=== PATIENT | male | born 1940 | race Caucasian/White ===

== ENCOUNTER 2016-10-25 09:52 | Observation (INO) | payer OTHER ==
--- NOTE | 2016-10-25 10:09 | PDOC ---
History of Present Illness <Bulmaro Engle - Last Filed: 10/25/16 14:26> - General History Source: Patient, EMS Exam Limitations: Dementia - History of Present Illness Initial Comments: This is a 76 yo male with h/o Alzheimer's dementia, COPD (40 pack-year history but quit years ago, on 2 LPM O2 prn per his records), and hypothyroidism who presents BIBA from [facility] after an unwitnessed fall and right forehead laceration. EMS reports that he was found down on the floor next to a moderate about of blood this morning by care facility staff after an unwitnessed fall at an unknown time last night. Staff and the patient do not remember when he went to his bedroom for the night. The patient himself cannot recall any of the events of last night or this morning, and is thus unable to contribute to his recent medical history. Staff at the care facility did note to EMS that the patient has been having shortness of breath and productive cough for the past two weeks. He refused breathing treatments for EMS at the facility and en route to the ED. The patient currently denies chest pain, nausea , weakness, numbness, tingling, headache, vision changes, or any pain. He denies alcohol or drug use. <Obregon,Layla - Last Filed: 10/25/16 15:00> - General Stated Complaint: FALL Time Seen by Provider: 10/25/16 09:58 Past History <Bulmaro Engle - Last Filed: 10/25/16 14:26> - Past Medical History COPD: Yes Dementia: Yes Hypercholesterolemia: Yes Psychiatric Problems: Yes (depression) Thyroid Disease: Yes (hypothyroidism) Other medical history: BPH - Immunization History Immunization Up to Date: Yes - Psycho/Social/Smoking Cessation Hx Suicidal Ideation: No Smoking History: Unknown if ever smoked Substance Use Type: None <MindiLayla - Last Filed: 10/25/16 15:00> - Past Medical History Allergies/Adverse Reactions: Allergies Allergy/AdvReac Type Severity Reaction Status Date / Time No Known Allergies Allergy Verified 10/25/16 10:03 Review of Systems - Review of Systems Able to Perform ROS?: No (Alzheimer's dementia) Is the patient limited Maori proficient: No <Layla Obregon - Last Filed: 10/25/16 15:00> *Physical Exam - Vital Signs Last Vital Signs Temp Pulse Resp BP Pulse Ox 97.4 F L 65 20 135/83 92 L 10/25/16 10:01 10/25/16 10:01 10/25/16 10:01 10/25/16 10:01 10/25/16 10:01 <Bulmaro Engle - Last Filed: 10/25/16 14:26> - Vital Signs Last Vital Signs Temp Pulse Resp BP Pulse Ox 97.4 F L 65 20 135/83 92 L 10/25/16 10:01 10/25/16 10:01 10/25/16 10:01 10/25/16 10:01 10/25/16 10:01 - Physical Exam General Appearance: Yes: Nourished, Appropriately Dressed, Other (nontoxic and well-appearing visually, but obviously SOB with wheezing audible across the exam room and occasional productive cough). No: Apparent Distress HEENT: positive: EOMI, Normal Voice, Hearing Grossly Normal, Other (Right inferior frontal aspect with swelling and central 2.5 cm linear full-thickness laceration which is hemostatic). negative: Scleral Icterus (R), Scleral Icterus (L), Nasal Congestion Neck: positive: Trachea midline, Supple. negative: Tender, Rigid Respiratory/Chest: positive: Lungs Clear, Normal Breath Sounds. negative: Respiratory Distress, Crackles, Rhonchi, Stridor, Wheezing Cardiovascular: positive: Regular Rhythm, Regular Rate. negative: Murmur Gastrointestinal/Abdominal: positive: Normal Bowel Sounds, Soft. negative: Tender, Organomegaly, Pulsatile Mass, Guarding Musculoskeletal: positive: Normal Inspection, Other (1x1cm superficial skin tear to right anterior knee which is hemostatic). negative: Decreased Range of Motion, Vertebral Tenderness Extremity: positive: Normal Capillary Refill, Normal Inspection, Normal Range of Motion. negative: Tender, Cyanosis Integumentary: positive: Normal Color, Dry, Warm. negative: Erythema, Rash Neurologic: positive: Alert, Normal Mood/Affect, Motor Strength 5/5, Other. negative: Facial Droop <Layla Obregon - Last Filed: 10/25/16 15:00> Procedures - Laceration/Wound Repair Right Anterior Frontal Wound Length: to 2.5 cm Wound Explored: clean Wound's Depth, Shape: linear Irrigated w/ Saline: Yes Anesthesia: 2% Lidocaine w/ Epi Amount of Anesthetic (ccs): 5 Wound Repaired With: Sutures (#5) Suture Size/Type: 5:0, nylon <Layla Obregon - Last Filed: 10/25/16 15:00> ED Treatment Course - LABORATORY CBC & Chemistry Diagram: 10/25/16 10:45 10/25/16 10:45 - ADDITIONAL ORDERS Additional order review: Laboratory Results 10/25/16 10:45 Sodium 141 Potassium 4.6 Chloride 105 Carbon Dioxide 29 Anion Gap 7 L BUN 25 H Creatinine 0.8 Creat Clearance w eGFR > 60 Random Glucose 93 Calcium 9.2 Total Bilirubin 0.5 AST 47 H ALT 31 Alkaline Phosphatase 84 Total Protein 7.2 Albumin 3.3 L 10/25/16 10:45 RBC 5.03 MCV 88.2 MCHC 32.6 RDW 15.4 MPV 7.9 Neutrophils % 50.5 Lymphocytes % 39.9 Monocytes % 6.1 Eosinophils % 3.0 Basophils % 0.5 - RADIOLOGY Radiology Studies Ordered: Category Date Time Status SPINE-THORACIC [RAD] Stat Radiology 10/25/16 11:11 Ordered - Medications Given in the ED: ED Medications Discontinued Medications Generic Name Dose Route Start Last Admin Trade Name Freq PRN Reason Stop Dose Admin Acetaminophen 650 mg 10/25/16 11:14 10/25/16 12:23 Tylenol - PO 10/25/16 11:15 650 mg ONCE ONE Administration Diphtheria/Tetanus/Acell Pertussis 0.5 ml 10/25/16 10:37 10/25/16 10:44 Boostrix - IM 10/25/16 10:38 0.5 ml .ONCE ONE Administration Sodium Chloride 1,000 mls @ 1,000 mls/hr 10/25/16 10:32 10/25/16 10:41 Normal Saline - IV 10/25/16 11:31 1,000 mls/hr ASDIR STA Administration Lidocaine/Epinephrine 5 ml 10/25/16 12:07 10/25/16 12:23 Xylocaine 2%/Epi [id number] Pf INF 10/25/16 12:08 5 ml ONCE ONE Administration <Bulmaro Engle - Last Filed: 10/25/16 14:26> - LABORATORY CBC & Chemistry Diagram: 10/25/16 10:45 10/25/16 10:45 <Layla Obregon - Last Filed: 10/25/16 15:00> Medical Decision Making - Medical Decision Making 76 yo male with dementia and severe memory impairment who presents s/p unwitnessed fall with right forehead laceration. Patient without memory of event or ability to elaborate on his history. Per care facility records, he should be taking daily ASA but no other blood thinning agents. Per these records he also takes 28 mg/day memantine XR (can cause dizziness, sleepiness). Per EMS, it was reported that he is nonadherent to his medication regimen at the facility. The patient has suffered a fall which may be mechanical or may be secondary to syncope, lightheadedness, etc. Included on the ddx are PNA, UTI, ACS, arrhythmia, anemia, dehydration, electrolyte imbalance, etc. CXR, UA, CBC, CMP, EKG are ordered to evaluate for possible underlying cause of the fall. The patient's pupils are pinpoint, raising concern for pontine bleed, opioid use , cholinergic toxicity. Head and neck imaging are indicated according to Nexus II head and C-spine criteria. CT Head and C-spine without contrast are ordered to evaluate for skull fracture and/or ICH. CTs are not suggestive of acute intracranial or c-spine pathology. Right eyebrow laceration is cleaned and sutured. CXR suggests LLL pneumonia. Pt's PCP (Dr. Jaeger) agrees to admit the Pt for tx of HCAP with IV antibiotics. IV cefepime, vancomycin, and azithromycin are started and Pt is admitted. <Layla Obregon - Last Filed: 10/25/16 15:00> *DC/Admit/Observation/Transfer - Discharge Dispostion Admit: Yes <Bulmaro Engle - Last Filed: 10/25/16 14:26> - Discharge Dispostion Admit: Yes - Attestations Physician Attestion: 10/25/16 14:45 I, Dr. Layla Obregon, attest that this document has been prepared under my direction and personally reviewed by me in its entirety. I further attest, that it accurately reflects all work, treatment, procedures and medical decision -making performed by me. <Layla Obregon - Last Filed: 10/25/16 15:00> Diagnosis at time of Disposition: Pneumonia Qualifiers: Pneumonia type: due to unspecified organism Laterality: left Lung location: lower lobe of lung Qualified Code(s): J18.1 - Lobar pneumonia, unspecified organism Head injury Qualifiers: Encounter type: initial encounter Qualified Code(s): S09.90XA - Unspecified injury of head, initial encounter Laceration of head Qualifiers: Encounter type: initial encounter Location of open wound of head: scalp Foreign body presence: without foreign body Qualified Code(s): S01.01XA - Laceration without foreign body of scalp, initial encounter - Discharge Dispostion Condition at time of disposition: Guarded - Referrals Referrals: Therese Jaeger MD [Primary Care Provider] -
--- NOTE | 2016-10-25 10:10 | PDOC ---
Attending Attestation - Resident Resident Name: Layla Obregon - ED Attending Attestation I have performed the following: I have examined & evaluated the patient, The case was reviewed & discussed with the resident, I agree w/resident's findings & plan, Exceptions are as noted - HPI HPI: 10/25/16 11:12 76y M hx of alzheimers, copd (2L NC PRN), hypothyroidism, HL, presents for evaluation s/p fall, pt had an unwitnessed fall last night sometime, pt endorses mild headache, denies any vision changes, numbnes/tingling/weakness, cp , sob, palpitations, fever/schills. Pt does note that he has been having some mild posterior neck pain and upper back pain and has endorsed a nonproductive cough for several days. GENERAL: The patient is awake, alert, and fully oriented, Nontoxic - in no acute distress. HEAD: Normocephalic, laceation above R brow, no focal bony tenderness, EYES: extraocular movements intact, sclera anicteric, conjunctiva clear, Pupils 2mm ENT: Normal voice, Moist mucous membranes. NECK: Normal range of motion, supple, mild tendenress approx C6 LUNGS: rhonchorus breath sounds with imld diffuse wheezing HEART: Regular rate and rhythm, normal S1 and S2 without murmur, rub or gallop. ABDOMEN: Soft, nontender, normoactive bowel sounds. No guarding, no rebound. No CVA tenderness EXTREMITIES: Normal range of motion, no edema. No clubbing or cyanosis. No cords, erythema, or tenderness. NEUROLOGICAL: No facial assymetry, Normal speech, moving all 4 extermities spontaneously and symmetricallly PSYCH: Normal mood, normal affect. SKIN: Warm, Dry, normal turgor, A&P Untwitnessed fall repair laceration CT head to r/o ich, trauma labs to r/o anemia/metabolic dernagement UA and cxr to r/o occult inf duo nebs for wheezing/rales 10/25/16 14:25 cxr noted for pna case dw dr. abdalla agree with admission for futher mangaement due to underlying COPD for mangaement of his pna lac trepaired with 5 5.0 sutures. will need suture removal in 3-5 days Case discussed in detail with admitting physician including history, physical exam and ancillary studies. Admitting physician has assumed care for the patient, will follow all pending diagnostics and will complete the evaluation and treatment. - Physicial Exam PE: 10/26/16 17:14 see above - Medical Decision Making 10/26/16 17:14 see above Heart Score/ECG Review - ECG Impressions Comment:: 10/25/16 17:07 Twelve-lead EKG was performed and reviewed by me. There is normal sinus rhythm with a normal rate. Rate of 72 LBBB Procedures - Consent Consent obtained: Verbal - Laceration/Wound Repair Right Anterior Face Wound Length: 2.6 to 5.0 cm Wound Explored: clean Wound's Depth, Shape: superficial Irrigated w/ Saline: Yes Anesthesia: 2% Lidocaine Amount of Anesthetic (ccs): 5 Wound Debrided: moderate Wound Repaired With: Sutures Suture Size/Type: 5:0 Number of Sutures: 5 Layer Closure: No Sterile Dressing Applied: Yes
[2016-10-25] MEDS ORDERED: SODIUM CHLORIDE 1,000 ML IV STA (10:32)
[2016-10-25] MEDS ORDERED: DIPHTH,PERTUSS(ACELL),TET 0.5 ML DISP.SYRIN IM ONE (10:37)
[2016-10-25] MEDS ORDERED: ALBUTEROL SO4 2.5/IPRATROPIUM 0.5 INH SOL 3 ML VIAL.NEB. NEB ONE (10:38)
[2016-10-25 11:08] LABS: BASOPHIL 0.5 % (0-2.0); MCH 28.8 pg (25.7-33.7); MCHC 32.6 g/dl (32.0-35.9); MEAN CELL VOLUME 88.2 fl (80-96); MEAN PLT VOLUME 7.9 fl (7.5-11.1); NEUTROPHILS 50.5 % (42.8-82.8); PLATELET COUNT 185 K/MM3 (134-434); RDW 15.4 % (11.9-15.9); WHITE BLOOD COUNT 10.9 K/mm3 (4.0-10.0)
[2016-10-25] MEDS ORDERED: ACETAMINOPHEN 325 MG TABLET (FP) PO ONE (11:14)
[2016-10-25 11:17] LABS: ALK PHOS 84 U/L (45-117)
[2016-10-25 11:23] LABS: ALBUMIN 3.3 g/dl (3.4-5.0); ANION GAP 7 (8-16); BILIRUBIN,TOTAL 0.5 mg/dL (0.2-1.0); CALCIUM 9.2 mg/dL (8.5-10.1); CO2 29 mmol/L (21-32); CREATININE 0.8 mg/dL (0.7-1.3); GLUCOSE,RANDOM 93 mg/dL (74-106); SGOT/AST 47 U/L (15-37); SGPT/ALT 31 U/L (12-78); TOT PROT 7.2 g/dl (6.4-8.2)
[2016-10-25] MEDS ORDERED: LIDO 2%/EPI 1:200000 PRESRVFRE (20 ML SDVIAL) INF ONE (12:07)
[2016-10-25] MEDS ORDERED: LIDOCAINE 1%/EPI 1:100000 (50 ML MULTI DOSE VIAL) ONE (12:21)
[2016-10-25] MEDS ORDERED: ACETAMINOPHEN 325 MG TABLET (FP) ONE (12:21)
[2016-10-25] MEDS: ALBUTEROL SO4 2.5/IPRATROPIUM 0.5 INH SOL 3 ML VIAL.NEB. NEB SCH ×2 (12:47→23:34)
[2016-10-25] MEDS ORDERED: AZITHROMYCIN IVPB 500 MG in DEXTROSE 5%-WATER - 250 ML IVPB ONE (13:46)
[2016-10-25] MEDS ORDERED: CEFTRIAXONE 1 GM in DEXTROSE 5%-WATER - 50 ML IVPB ONE (13:46)
[2016-10-25] MEDS ORDERED: VANCOMYCIN 1,000 MG in DEXTROSE 5%-WATER - 250 ML IVPB ONE (13:49)
[2016-10-25] MEDS ORDERED: CEFEPIME HCL 2 GM VIAL (RESTRICTED TO ID) IVPB ONE (13:49)
[2016-10-25] MEDS ORDERED: CEFTRIAXONE 50 ML ONE (13:52)
[2016-10-25] MEDS ORDERED: AZITHROMYCIN IVPB 250 ML IVPB ONE (13:52)
[2016-10-25 14:05] LABS: URINE APPEARANCE CLEAR; URINE BILIRUBIN NEGATIVE (NEGATIVE); URINE BLOOD NEGATIVE (NEGATIVE); URINE COLOR STRAW; URINE GLUCOSE (UA) NEGATIVE (NEGATIVE); URINE KETONE NEGATIVE (NEGATIVE); URINE LEUK ESTERASE NEGATIVE (NEGATIVE); URINE NITRITE NEGATIVE (NEGATIVE); URINE PROTEIN NEGATIVE (NEGATIVE); URINE UROBILINOGEN NEGATIVE mg/dL (0.2-1.0)
[2016-10-25] MEDS ORDERED: CEFEPIME 100 ML IVPB ONE (15:10)
[2016-10-25] MEDS ORDERED: ALBUTEROL SO4 2.5/IPRATROPIUM 0.5 INH SOL 3 ML VIAL.NEB. NEB PRN (16:01)
[2016-10-25] MEDS ORDERED: VANCOMYCIN 1 GRAM (PRE-DOCKED) 250 ML IVPB ONE (16:09)
[2016-10-25 21:13] VITALS: BMI 21.7
[2016-10-25] MEDS: ACETAMINOPHEN 325 MG TABLET (FP) PO PRN (21:47)
[2016-10-26] MEDS: ALBUTEROL SO4 2.5/IPRATROPIUM 0.5 INH SOL 3 ML VIAL.NEB. NEB SCH ×3 (03:28→10:46)
[2016-10-26 08:31] LABS: MCH 29.5 pg (25.7-33.7); MCHC 33.7 g/dl (32.0-35.9); MEAN CELL VOLUME 87.6 fl (80-96); MEAN PLT VOLUME 7.5 fl (7.5-11.1); PLATELET COUNT 179 K/MM3 (134-434); RDW 15.3 % (11.9-15.9); WHITE BLOOD COUNT 8.1 K/mm3 (4.0-10.0)
[2016-10-26 08:59] LABS: ALBUMIN 3.1 g/dl (3.4-5.0); ANION GAP 6 (8-16); CALCIUM 8.6 mg/dL (8.5-10.1); CO2 30 mmol/L (21-32); GLUCOSE,RANDOM 78 mg/dL (74-106)
[2016-10-26 09:04] LABS: ALK PHOS 74 U/L (45-117); BILIRUBIN,TOTAL 0.7 mg/dL (0.2-1.0); CREATININE 0.7 mg/dL (0.7-1.3); SGOT/AST 27 U/L (15-37); SGPT/ALT 25 U/L (12-78); TOT PROT 6.4 g/dl (6.4-8.2)
[2016-10-26] MEDS ORDERED: LEVOFLOXACIN 500 MG IVPB 100 ML IVPB SCH (10:00)
--- NOTE | 2016-10-26 10:02 | HP ---
Admitting History and Physical - Primary Care Physician PCP: Therese Jaeger - Admission Chief Complaint: s/p fall History of Present Illness: ER HISTORY - History of Present Illness Initial Comments: This is a 76 yo male with h/o Alzheimer's dementia, COPD (40 pack-year history but quit years ago, on 2 LPM O2 prn per his records), and hypothyroidism who presents BIBA from [facility] after an unwitnessed fall and right forehead laceration. EMS reports that he was found down on the floor next to a moderate about of blood this morning by care facility staff after an unwitnessed fall at an unknown time last night. Staff and the patient do not remember when he went to his bedroom for the night. The patient himself cannot recall any of the events of last night or this morning, and is thus unable to contribute to his recent medical history. Staff at the the [facility] facility did note to EMS that the patient has been having shortness of breath and productive cough for the past two weeks. He refused breathing treatments for EMS at the facility and en route to the ED. The patient currently denies chest pain, nausea , weakness, numbness, tingling, headache, vision changes, or any pain. He denies alcohol or drug use. Pt examined by me on the floors Pt known by me from [facility]-- he has COPD, chronic B.Noelle xenia Denies any SOB and distress He fell and lacerated his forehead-- sutured in ER. Pt was supposed to be dc from ER, but admitted due to "COPD exacerbation" History Source: Patient Limitations to Obtaining History: No Limitations - Past Medical History Cardiovascular: Yes: HTN Pulmonary: Yes: COPD - Smoking History Smoking history: Unknown if ever smoked Home Medications - Allergies Allergies/Adverse Reactions: Allergies Allergy/AdvReac Type Severity Reaction Status Date / Time No Known Allergies Allergy Verified 10/25/16 10:03 - Home Medications Home Medications: Ambulatory Orders Acetaminophen [Tylenol .Regular Strength -] 650 mg PO Q6H PRN #0 tablet Albuterol 2.5/Ipratropium 0.5 [Duoneb -] 1 amp NEB Q6H PRN #0 amp 10/26/16 Levofloxacin 500 mg Ivpb [Levaquin 500 mg Premixed Ivpb -] 100 ml IVPB DAILY # 10 bag 10/26/16 Prednisone [Deltasone -] 10 mg PO DAILY #30 tablet 10/26/16 Review of Systems - Review of Systems Constitutional: denies: Chills, Fever, Loss of Appetite, Weakness Respiratory: reports: Wheezing. denies: Cough, SOB, SOB on Exertion Physical Examination Vital Signs: Vital Signs Temperature 98.8 F 10/26/16 07:57 Pulse Rate 62 10/26/16 07:57 Respiratory Rate 18 10/26/16 07:57 Blood Pressure 125/67 10/26/16 07:57 O2 Sat by Pulse Oximetry (%) 94 L 10/25/16 20:00 Constitutional: Yes: No Distress, Calm HENT: Yes: Other (rt forhead-- wound sutured) Cardiovascular: Yes: Regular Rate and Rhythm Respiratory: Yes: Diminished, Rhonchi Gastrointestinal: Yes: Normal Bowel Sounds, Soft. No: Abdomen, Obese, Distention, Tenderness Edema: No Psychiatric: Yes: Alert, Oriented Labs: CBC, BMP 10/26/16 06:55 10/26/16 06:55 Imaging - Results Chest X-ray: Image Reviewed Cat Scan: Report Reviewed EKG: Image Reviewed Problem List - Problems (1) Head injury Code(s): S09.90XA - UNSPECIFIED INJURY OF HEAD, INITIAL ENCOUNTER Qualifiers: Encounter type: initial encounter Qualified Code(s): S09.90XA - Unspecified injury of head, initial encounter (2) Laceration of head Code(s): S01.91XA - LACERATION W/O FOREIGN BODY OF UNSP PART OF HEAD, INIT Qualifiers: Encounter type: initial encounter Location of open wound of head: scalp Foreign body presence: without foreign body Qualified Code(s): S01.01XA - Laceration without foreign body of scalp, initial encounter (3) Pneumonia Code(s): J18.9 - PNEUMONIA, UNSPECIFIED ORGANISM Qualifiers: Pneumonia type: due to unspecified organism Laterality: left Lung location: lower lobe of lung Qualified Code(s): J18.1 - Lobar pneumonia, unspecified organism (4) COPD (chronic obstructive pulmonary disease) Code(s): J44.9 - CHRONIC OBSTRUCTIVE PULMONARY DISEASE, UNSPECIFIED Assessment/Plan PLAN Mildly elevated WBC which is now normal No fever O2sat is good on room air-- pt refuses O2 and nebs Continue with IV Levaquin Will start him on PO Prednisone pt can be dc back to NH, with continuation of iv antibiotics and tapering prednisone Nebs as needed and will repeat CXR in a few weeks spoke with skilled nursing case manager and nurse
[2016-10-26] MEDS: ACETAMINOPHEN 325 MG TABLET (FP) PO PRN (10:29)
[2016-10-26 10:33] VITALS: BP 137/56; PULSE 64
--- NOTE | 2016-10-26 10:38 | DS ---
Physical Examination Vital Signs: Vital Signs Temperature 98.8 F 10/26/16 07:57 Pulse Rate 64 10/26/16 10:25 Respiratory Rate 24 10/26/16 10:25 Blood Pressure 137/56 10/26/16 10:25 O2 Sat by Pulse Oximetry (%) 94 L 10/25/16 20:00 Labs: CBC, BMP 10/26/16 06:55 10/26/16 06:55 Discharge Summary Reason For Visit: HEAD LACERATION,INJURY OF HEAD,PNEUMONIA Current Active Problems Head injury (Acute) Laceration of head (Acute) Pneumonia (Acute) Hospital Course: see H & P Dc to NH today for continuation of iv antibiotics he has chronic ronchi B/L -- will place him on prednsone taper nebs and O2 -- even though he refuses O2 and nebs Remove sutures in 7 days Condition: Improved - Instructions Diet, Activity, Other Instructions: remove sutures in 7 days Referrals: Therese Jaeger MD [Primary Care Provider] - Disposition: CARE HOME FACILITY
[2016-10-26 11:52] VITALS: TEMP 97.7
--- NOTE | 2016-10-28 10:46 | EKG ---
Test Reason : Blood Pressure : / mmHG Vent. Rate : 072 BPM Atrial Rate : 072 BPM P-R Int : 176 ms QRS Dur : 092 ms QT Int : 446 ms P-R-T Axes : 044 -37 054 degrees QTc Int : 488 ms NORMAL SINUS RHYTHM LEFT AXIS DEVIATION SEPTAL INFARCT , AGE UNDETERMINED ABNORMAL ECG NO PREVIOUS ECGS AVAILABLE Confirmed by LINDA JAMES MD ([id number]) on 10/28/2016 10:45:39 AM Referred By: Confirmed By:LINDA JAMES MD
== END 2016-10-26 14:29 ==
LOC: JER 09:52 → JERBED 14:45 → UNDOADMOB 14:45 → INTOOBSV 14:45 → J5S 15:00 → JERBED 18:53
PROVIDERS: ADMIT Internal Medicine; ATTEND Internal Medicine
PROC: 0HQ1XZZ Repair Face Skin, External Approach (ICD-10-PCS; principal; 2016-10-25)
PROC: 3E03329 Introduction of Other Anti-infective into Peripheral Vein, Percutaneous Approach (ICD-10-PCS; 2016-10-25)
PROC: 3E0234Z Introduction of Serum, Toxoid and Vaccine into Muscle, Percutaneous Approach (ICD-10-PCS; 2016-10-25)
PROC: 3E0F7GC Introduction of Other Therapeutic Substance into Respiratory Tract, Via Natural or Artificial Opening (ICD-10-PCS; 2016-10-25)
DX: J18.1 Lobar pneumonia, unspecified organism (principal); S09.90XA Unspecified injury of head, initial encounter; S01.81XA Laceration without foreign body of other part of head, initial encounter; W19.XXXA Unspecified fall, initial encounter; Y93.9 Activity, unspecified; Y92.122 Bedroom in nursing home as the place of occurrence of the external cause; G30.9 Alzheimer's disease, unspecified; F02.80 Dementia in other diseases classified elsewhere, unspecified severity, without behavioral disturbance, psychotic disturbance, mood disturbance, and anxiety; J44.9 Chronic obstructive pulmonary disease, unspecified; E03.9 Hypothyroidism, unspecified; F32.9 Major depressive disorder, single episode, unspecified; N40.0 Benign prostatic hyperplasia without lower urinary tract symptoms; Z87.891 Personal history of nicotine dependence; Z99.81 Dependence on supplemental oxygen
CPT/HCPCS: 12011; 36415; 70450-TC; 71010-TC; 72125-TC; 80053; 81003; 85025; 85027; 87086; 90471; 90715; 93005; 93010; 94640; 96365; 96367; 99284-25; G0378

== ENCOUNTER 2017-06-04 19:46 | Emergency (ER) | payer OTHER ==
[2017-06-04 20:01] VITALS: TEMP 98.3; BMI 23.7
--- NOTE | 2017-06-04 21:12 | PDOC ---
History of Present Illness - General Chief Complaint: Laceration Stated Complaint: INJURY Time Seen by Provider: 06/04/17 20:16 History Source: Patient Exam Limitations: No Limitations - History of Present Illness Initial Comments: 06/04/17 21:12 76y M hx of alzheimers, copd (2L NC PRN), hypothyroidism, HL, presents with a laceration to his left eyebrow after hitting a doorframe . Event was witnessed. No loc. 06/04/17 21:15 Past History - Past Medical History Allergies/Adverse Reactions: Allergies Allergy/AdvReac Type Severity Reaction Status Date / Time No Known Allergies Allergy Verified 06/04/17 20:07 Home Medications: Ambulatory Orders Acetaminophen [Tylenol .Regular Strength -] 650 mg PO Q6H PRN #0 tablet Albuterol 2.5/Ipratropium 0.5 [Duoneb -] 1 amp NEB Q6H PRN #0 amp 10/26/16 Donepezil HCl [Aricept -] 10 mg PO HS 06/04/17 Escitalopram Oxalate [Lexapro -] 10 mg PO DAILY 06/04/17 Gabapentin [Neurontin] 200 mg PO TID 06/04/17 Ipratropium/Albuterol Sulfate [Combivent Respimat Inhal [place]] 2 inh IH Q8H Levothyroxine Sodium [Levoxyl] 125 mcg PO DAILY 06/04/17 Loratadine [Claritin] 10 mg PO DAILY 06/04/17 Memantine HCl [Namenda Xr] 28 mg PO DAILY 06/04/17 Montelukast Na [Singulair -] 10 mg PO HS 06/04/17 Prednisone 10 mg PO DAILY 06/04/17 Ranitidine HCl [Zantac] 300 mg PO HS 06/04/17 Salmeterol/Fluticasone [Advair 500Mcg/50Mcg] 1 inh PO BID 06/04/17 Simvastatin [Zocor -] 40 mg PO HS 06/04/17 Thiamine HCl [Vitamin B-1] 100 mg PO DAILY 06/04/17 Tiotropium Fithian [Spiriva] 1 inh PO DAILY 06/04/17 COPD: Yes Dementia: Yes Hypercholesterolemia: Yes Psychiatric Problems: Yes (depression) Thyroid Disease: Yes (hypothyroidism) - Immunization History Immunization Up to Date: Yes - Suicide/Smoking/Psychosocial Hx Smoking History: Unknown if ever smoked Have you smoked in the past 12 months: No Information on smoking cessation initiated: No Substance Use Type: None Review of Systems - Review of Systems Able to Perform ROS?: Yes Is the patient limited [place] proficient: No Constitutional: No: Symptoms Reported HEENTM: Yes: See HPI Respiratory: No: Symptoms reported Cardiac (ROS): No: Symptoms Reported ABD/GI: No: Symptoms Reported : No: Symptoms Reported Musculoskeletal: No: Symptoms Reported Integumentary: No: Symptoms Reported All Other Systems: Reviewed and Negative *Physical Exam - Vital Signs Last Vital Signs Temp Pulse Resp BP Pulse Ox 98.3 F 87 18 100/74 94 L 06/04/17 19:58 06/04/17 19:58 06/04/17 19:58 06/04/17 19:58 06/04/17 19:58 - Physical Exam General Appearance: Yes: Nourished, Appropriately Dressed. No: Apparent Distress HEENT: positive: EOMI, MACIEL, Normal ENT Inspection, Other (2cm laceration to left eyebrow) Neck: negative: Tender Respiratory/Chest: positive: Labored Respiration. negative: Chest Tender, Respiratory Distress Cardiovascular: positive: Regular Rhythm, Regular Rate, S1, S2 Gastrointestinal/Abdominal: positive: Normal Bowel Sounds, Flat, Soft. negative : Tender Musculoskeletal: positive: Normal Inspection. negative: CVA Tenderness Integumentary: positive: Normal Color, Dry, Warm Neurologic: positive: Alert, Normal Mood/Affect, Depressed Affect Procedures - Laceration/Wound Repair Left Upper Eye Wound Length: to 2.5 cm Wound Explored: clean, no foreign body present Wound's Depth, Shape: superficial, linear Irrigated w/ Saline: Yes Betadine Prep: Yes Anesthesia: 1% Lidocaine Wound Repaired With: Sutures Suture Size/Type: 5:0, proline Medical Decision Making - Medical Decision Making 06/04/17 21:36 laceration sutured, Patient comfortable. Given that there was no step off. We do not deem necessary to do a cat scan given nature of injury and presentation . 4 prolene sutures with bacitracin *DC/Admit/Observation/Transfer Diagnosis at time of Disposition: Laceration of head - Discharge Dispostion Disposition: HOME Condition at time of disposition: Improved Admit: No - Referrals - Patient Instructions Printed Discharge Instructions: DI for Laceration Repair Additional Instructions: Come back to the ER or primary care provider for suture removal in 3 to 5 days. - Post Discharge Activity
--- NOTE | 2017-06-04 21:24 | PDOC ---
Attending Attestation - Resident Resident Name: James Simmons - ED Attending Attestation I have performed the following: I have examined & evaluated the patient, The case was reviewed & discussed with the resident, I agree w/resident's findings & plan, Exceptions are as noted - HPI HPI: 06/04/17 21:24 Mr Soni is a 76 yo male with h/o Alzheimer's dementia, COPD (40 pack-year history but quit years ago, on 2 LO2 prn per chart), and hypothyroidism who presents via EMS from [facility] after walking in to a door and sustaining a left forehead laceration No LOC No amnesia The patient has no complaints of pain, dizziness, vision changes No neck pain No nausea or vomiting No chest pain, nausea, weakness, numbness, tingling, headache, vision changes, or any pain. He denies alcohol or drug use. - Physicial Exam PE: 06/04/17 21:26 On examination: Pt is awake and alert Pupils pin point bilaterally EOMI Face is symmetric Laceration above left eyebrow measuring 1.5 cm No midline c spine tenderness RRR Rhoncherous breath sounds through out No abd tenderness Pelvis is stable - Medical Decision Making 06/04/17 21:27 76 yo M s/p minor head trauma with left forehead laceration No LOC No indication for CT Laceration repair Breath sounds rhoncherous bilaterally (per charting, this is his baseline) call placed to PMD to update them Unable to speak with anyone Will discharge to Alf clinical Impression: minor head trauma, initial presentation Forehead laceration
[2017-06-04 22:02] VITALS: BP 128/71; PULSE 68
== END 2017-06-04 22:54 | disposition home or self-care (01) ==
LOC: JER 19:46
PROC: 0HQ1XZZ Repair Face Skin, External Approach (ICD-10-PCS; principal; 2017-06-04)
DX: S01.112A Laceration without foreign body of left eyelid and periocular area, initial encounter (principal); W22.8XXA Striking against or struck by other objects, initial encounter; Y93.89 Activity, other specified; Y92.128 Other place in nursing home as the place of occurrence of the external cause; J44.9 Chronic obstructive pulmonary disease, unspecified; E03.9 Hypothyroidism, unspecified; E78.00 Pure hypercholesterolemia, unspecified; G30.9 Alzheimer's disease, unspecified; F02.80 Dementia in other diseases classified elsewhere, unspecified severity, without behavioral disturbance, psychotic disturbance, mood disturbance, and anxiety
CPT/HCPCS: 99281-25

== ENCOUNTER 2017-07-14 12:53 | Emergency (ER) | payer OTHER ==
[2017-07-14 13:03] VITALS: BMI 22.5
--- NOTE | 2017-07-14 13:44 | PDOC ---
History of Present Illness - General History Source: Patient, EMS - History of Present Illness Initial Comments: The patient is a 76 year old male brought in by EMS, with a significant past medical history obtained by EMS and old records of Alzheimers, hypertension, hyperlipidemia and gastroesophageal reflux disease who presents to the emergency department complaining of left shoulder pain s/p fall around 5:30. The EMS reports the patient had an unwitnessed fall and had X-rays done at the [facility]. The X-rays reveal proximal humerus fracture of left shoulder. Of note, the patient is a poor historian. Denies any other pain besides left shoulder. Allergies: NKA Social history: No reported cigarette, alcohol, or drug use. <Ana Lilia Denise - Last Filed: 07/14/17 17:08> <Narendra Mxa - Last Filed: 07/14/17 17:12> - General Chief Complaint: Bone Injury Stated Complaint: LTARM FX Time Seen by Provider: 07/14/17 13:07 Past History <Ana Lilia Denise - Last Filed: 07/14/17 17:08> - Past Medical History COPD: Yes Dementia: Yes GI Disorders: Yes (gerd) Hypercholesterolemia: Yes Psychiatric Problems: Yes (depression) Thyroid Disease: Yes (hypothyroidism) - Immunization History Immunization Up to Date: Yes - Suicide/Smoking/Psychosocial Hx Smoking History: Unknown if ever smoked Have you smoked in the past 12 months: No Information on smoking cessation initiated: No Hx Alcohol Use: No Drug/Substance Use Hx: No Substance Use Type: None <Narendra Max - Last Filed: 07/14/17 17:12> - Past Medical History Allergies/Adverse Reactions: Allergies Allergy/AdvReac Type Severity Reaction Status Date / Time No Known Allergies Allergy Verified 07/14/17 12:58 Home Medications: Ambulatory Orders Acetaminophen [Tylenol .Regular Strength -] 650 mg PO Q6H PRN #0 tablet Albuterol 2.5/Ipratropium 0.5 [Duoneb -] 1 amp NEB Q6H PRN #0 amp 10/26/16 Donepezil HCl [Aricept -] 10 mg PO HS 06/04/17 Escitalopram Oxalate [Lexapro -] 10 mg PO DAILY 06/04/17 Gabapentin [Neurontin] 200 mg PO TID 06/04/17 Ipratropium/Albuterol Sulfate [Combivent Respimat Inhal [place]] 2 inh IH Q8H Levothyroxine Sodium [Levoxyl] 125 mcg PO DAILY 06/04/17 Loratadine [Claritin] 10 mg PO DAILY 06/04/17 Memantine HCl [Namenda Xr] 28 mg PO DAILY 06/04/17 Montelukast Na [Singulair -] 10 mg PO HS 06/04/17 Prednisone 10 mg PO DAILY 06/04/17 Ranitidine HCl [Zantac] 300 mg PO HS 06/04/17 Salmeterol/Fluticasone [Advair 500Mcg/50Mcg] 1 inh PO BID 06/04/17 Simvastatin [Zocor -] 40 mg PO HS 06/04/17 Thiamine HCl [Vitamin B-1] 100 mg PO DAILY 06/04/17 Tiotropium [place] [Spiriva] 1 inh PO DAILY 06/04/17 Review of Systems - Review of Systems Able to Perform ROS?: No (Unable to obtain ROS.) <Ana Lilia Denise - Last Filed: 07/14/17 17:08> *Physical Exam - Vital Signs Last Vital Signs Temp Pulse Resp BP Pulse Ox 98.7 F 90 20 116/65 97 07/14/17 12:59 07/14/17 12:59 07/14/17 12:59 07/14/17 12:59 07/14/17 12:59 - Physical Exam Comments: Vitals: Triage Vital signs reviewed General Appearance: Alert to self. no acute distress, well nourished well developed, Head: Atraumatic, normocephalic Neck: Supple;No Nuchal rigidity Chest Wall: Nontender Cardiac: Regular rate and rhythm, no murmurs, no rubs, no gallops, Lungs: Clear to auscultation bilateral, good air movement bilaterally, Abdomen: Soft, nondistended, normal bowel sounds, nontender to palpation Rectal: Exam deferred Extremities:+Tenderness to palpation over proximal humerus Left shoulder +tender to distal radius left arm. no cyanosis, clubbing, or edema Skin: Warm and dry, no rashes or lesions, no petechiae Psych: normal mood, normal affect <Ana Lilia Denise - Last Filed: 07/14/17 17:08> - Vital Signs Last Vital Signs Temp Pulse Resp BP Pulse Ox 98.7 F 90 20 116/65 97 07/14/17 12:59 07/14/17 12:59 07/14/17 12:59 07/14/17 12:59 07/14/17 12:59 <Narendra Max - Last Filed: 07/14/17 17:12> ED Treatment Course - LABORATORY CBC & Chemistry Diagram: 07/14/17 14:20 07/14/17 14:20 - ADDITIONAL ORDERS Additional order review: Laboratory Results 07/14/17 14:20 Sodium 136 Potassium 3.7 Chloride 98 Carbon Dioxide 32 Anion Gap 6 L BUN 23 H D Creatinine 1.0 D Creat Clearance w eGFR > 60 Random Glucose 114 H D Calcium 8.7 Total Bilirubin 0.9 D AST 13 L D ALT 19 D Alkaline Phosphatase 77 Total Protein 6.6 Albumin 3.5 07/14/17 14:20 RBC 4.90 MCV 90.0 MCHC 33.5 RDW 15.4 MPV 7.6 Neutrophils % 90.2 H D Lymphocytes % 5.7 L D Monocytes % 3.8 Eosinophils % 0.1 D Basophils % 0.2 <Ana Lilia Denise - Last Filed: 07/14/17 17:08> - LABORATORY CBC & Chemistry Diagram: 07/14/17 14:20 07/14/17 14:20 <Narendra Max - Last Filed: 07/14/17 17:12> Medical Decision Making - Medical Decision Making The patient is a 76 year old male brought in by EMS, with a significant past medical history obtained by EMS and old records of Alzheimers, hypertension, hyperlipidemia and gastroesophageal reflux disease who presents to the emergency department complaining of left shoulder pain s/p fall around 5:30. Plan: x-ray <Ana Lilia Denise - Last Filed: 07/14/17 17:08> - Medical Decision Making 07/14/17 14:30 Unwitnessed fall from [facility]. Suspected proximal humerus fracture to the left arm. We'll CT had cervical spine read image chest arm labs urine observe and reevaluate. Dr. Engle to follow up labs, CT, and reasses <Narendra Max - Last Filed: 07/14/17 17:12> *DC/Admit/Observation/Transfer - Attestations Scribe Attestion: 07/14/17 17:09 Documentation prepared by Ana Lilia Denise, acting as medical attendant for Narendra Max MD. <Ana Lilia Denise - Last Filed: 07/14/17 17:08> <aNrendra Max - Last Filed: 07/14/17 17:12> Diagnosis at time of Disposition: Humerus fracture Head injury Qualifiers: Encounter type: initial encounter Qualified Code(s): S09.90XA - Unspecified injury of head, initial encounter - Referrals Referrals: ON STAFF,NOT [Primary Care Provider] - - Patient Instructions - Post Discharge Activity
[2017-07-14 14:48] LABS: BASO % 0.2 % (0-2.0); EOS % 0.1 % (0-4.5); HEMATOCRIT 44.1 % (35.4-49); HEMOGLOBIN 14.8 GM/dL (11.7-16.9); LYMPH % 5.7 % (8-40); MCH 30.1 pg (25.7-33.7); MCHC 33.5 g/dl (32.0-35.9); MEAN PLT VOLUME 7.6 fl (7.5-11.1); MONO % 3.8 % (3.8-10.2); NEUT % 90.2 % (42.8-82.8); PLATELET COUNT 178 K/MM3 (134-434); RDW 15.4 % (11.9-15.9); WHITE BLOOD COUNT 14.6 K/mm3 (4.0-10.0)
[2017-07-14 15:28] LABS: ALBUMIN 3.5 g/dl (3.4-5.0); ANION GAP 6 (8-16); BILIRUBIN,TOTAL 0.9 mg/dL (0.2-1.0); BLOOD UREA NITROGEN 23 mg/dL (7-18); CALCIUM 8.7 mg/dL (8.5-10.1); CHLORIDE 98 mmol/L (98-107); CO2 32 mmol/L (21-32); GLUCOSE,RANDOM 114 mg/dL (74-106); POTASSIUM 3.7 mmol/L (3.5-5.1); SGOT/AST 13 U/L (15-37); SGPT/ALT 19 U/L (12-78); SODIUM 136 mmol/L (136-145); TOT PROT 6.6 g/dl (6.4-8.2)
[2017-07-14 15:29] LABS: ALK PHOS 77 U/L (45-117)
--- NOTE | 2017-07-14 17:31 | PDOC ---
*Physical Exam - Vital Signs Last Vital Signs Temp Pulse Resp BP Pulse Ox 98.7 F 90 20 116/65 97 07/14/17 12:59 07/14/17 12:59 07/14/17 12:59 07/14/17 12:59 07/14/17 12:59 ED Treatment Course - LABORATORY CBC & Chemistry Diagram: 07/14/17 14:20 07/14/17 14:20 - ADDITIONAL ORDERS Additional order review: Laboratory Results 07/14/17 14:20 Sodium 136 Potassium 3.7 Chloride 98 Carbon Dioxide 32 Anion Gap 6 L BUN 23 H D Creatinine 1.0 D Creat Clearance w eGFR > 60 Random Glucose 114 H D Calcium 8.7 Total Bilirubin 0.9 D AST 13 L D ALT 19 D Alkaline Phosphatase 77 Total Protein 6.6 Albumin 3.5 07/14/17 14:20 RBC 4.90 MCV 90.0 MCHC 33.5 RDW 15.4 MPV 7.6 Neutrophils % 90.2 H D Lymphocytes % 5.7 L D Monocytes % 3.8 Eosinophils % 0.1 D Basophils % 0.2 Medical Decision Making - Medical Decision Making 07/14/17 17:29 pt signed out to me from dr. smith approx 5pm Pt is a 76 y M hx of dementia, htn, hl, gerd who presents with L shoulder pain sp fall around 5:30, had an xray at [facility] showing prox humerus fx, otherwise limited history provided by pt. pts labs noted for leukocytosi sand left shift - awaiting xrays, ua ct head and cspine are neg for acute processes dispo pending 07/14/17 19:14 pts cxr clear ua not c/w and UTI +impacted humeral head fx on humerus hand xray shows some arthritic changes without acute fx suspect his leukocyotosis may be secondary to his pain from his fracture will dc the pt with pmd and ortho fu return precautions were discusesd I discussed the physical exam findings, ancillary test results and final diagnoses with the patient. I answered all of the patient's questions. The patient was satisfied with the care received and felt comfortable with the discharge plan and treatment plan. The patient will call their primary care physician within 24 hours to arrange follow-up and will return to the Emergency Department with any new, persistent or worsening symptoms. *DC/Admit/Observation/Transfer Diagnosis at time of Disposition: Head injury Qualifiers: Encounter type: initial encounter Qualified Code(s): S09.90XA - Unspecified injury of head, initial encounter Humerus fracture Qualifiers: Encounter type: initial encounter Humerus Location: surgical neck Fracture type : closed Fracture morphology: unspecified fracture morphology Fracture alignment : nondisplaced Laterality: left Qualified Code(s): S42.215A - Unspecified nondisplaced fracture of surgical neck of left humerus, initial encounter for closed fracture - Discharge Dispostion Disposition: SNF FACILITY Condition at time of disposition: Stable Admit: No - Referrals Referrals: [facility] [Other] Wyatt Buckley MD [Staff Physician] - - Patient Instructions Printed Discharge Instructions: How to Use a Sling, How to Prevent Falls, DI for Closed Head Injury Additional Instructions: Mr Soni has a fracture in his humerus. Please continue to use a sling and follow up with orthopedic surgery within 2-3 days for reevaluation. There was also an elevation of his white count however he is not exhibiting any signs of infection and his chest xray and urine are not suggestive of infection. FOllow up with you [facility] doctor for reevaluation. Pain medications as needed. - Post Discharge Activity
[2017-07-14 18:32] LABS: URINE APPEARANCE CLEAR; URINE BILIRUBIN NEGATIVE (<2.0 mg/dL); URINE BLOOD NEGATIVE (NEGATIVE); URINE COLOR DKYELLOW; URINE GLUCOSE (UA) NEGATIVE (NEGATIVE); URINE KETONE NEGATIVE (NEGATIVE); URINE LEUK ESTERASE NEGATIVE (NEGATIVE); URINE NITRITE NEGATIVE (NEGATIVE); URINE UROBILINOGEN NEGATIVE mg/dL (0.2-1.0)
[2017-07-14 18:38] LABS: URINE PROTEIN 1+ (NEGATIVE)
[2017-07-14 18:39] LABS: URINE MUCUS RARE
[2017-07-14] MEDS ORDERED: ACETAMINOPHEN 325 MG TABLET (FP) PO ONE (19:48)
[2017-07-14] MEDS ORDERED: ACETAMINOPHEN 325 MG TABLET (FP) ONE (20:05)
[2017-07-14 22:43] VITALS: BP 117/78; PULSE 78; TEMP 98.5
== END 2017-07-14 22:44 ==
LOC: JER 12:53
DX: S09.8XXA Other specified injuries of head, initial encounter (principal); S42.215A Unspecified nondisplaced fracture of surgical neck of left humerus, initial encounter for closed fracture; W18.39XA Other fall on same level, initial encounter; Y93.89 Activity, other specified; Y92.128 Other place in nursing home as the place of occurrence of the external cause; Y99.8 Other external cause status; I10 Essential (primary) hypertension; F32.9 Major depressive disorder, single episode, unspecified; E78.5 Hyperlipidemia, unspecified; K21.9 Gastro-esophageal reflux disease without esophagitis; E03.9 Hypothyroidism, unspecified; G30.9 Alzheimer's disease, unspecified; F02.80 Dementia in other diseases classified elsewhere, unspecified severity, without behavioral disturbance, psychotic disturbance, mood disturbance, and anxiety
CPT/HCPCS: 36415; 70450-TC; 71045-TC-FY; 72125-TC; 73060-TC-LT-FY; 73110-TC-LR-FY; 73130-TC-LR-FY; 80053; 81003; 81015; 85025; 87086; 99285-25

== ENCOUNTER 2017-11-11 16:23 | Observation (INO) | payer OTHER ==
[2017-11-11 16:53] VITALS: BMI 22.8
[2017-11-11 19:04] LABS: BASO % 0.2 % (0-2.0); EOS % 0.1 % (0-4.5); HEMATOCRIT 42.8 % (35.4-49); HEMOGLOBIN 14.3 GM/dL (11.7-16.9); LYMPH % 9.1 % (8-40); MCH 29.1 pg (25.7-33.7); MCHC 33.3 g/dl (32.0-35.9); MEAN CELL VOLUME 87.3 fl (80-96); MEAN PLT VOLUME 7.7 fl (7.5-11.1); MONO % 4.4 % (3.8-10.2); NEUT % 86.2 % (42.8-82.8); PLATELET COUNT 208 K/MM3 (134-434); RDW 14.7 % (11.9-15.9); WHITE BLOOD COUNT 14.9 K/mm3 (4.0-10.0)
[2017-11-11 19:19] LABS: INR 0.96 (0.83-1.09); PROTHROMBIN TIME (PATIENT) 10.9 SEC (9.7-13.0)
[2017-11-11 19:22] LABS: ACTIVATED PTT 24.4 SECONDS (25.2-36.5)
[2017-11-11 19:35] LABS: ALBUMIN 3.2 g/dl (3.4-5.0); ANION GAP 11 (8-16); BLOOD UREA NITROGEN 27 mg/dL (7-18); CALCIUM 8.6 mg/dL (8.5-10.1); CHLORIDE 101 mmol/L (98-107); CO2 30 mmol/L (21-32); CREATININE 1.1 mg/dL (0.7-1.3); GLUCOSE,RANDOM 131 mg/dL (74-106); POTASSIUM 4.3 mmol/L (3.5-5.1); SGOT/AST 19 U/L (15-37); SGPT/ALT 23 U/L (12-78); SODIUM 142 mmol/L (136-145)
[2017-11-11 19:38] LABS: ALK PHOS 85 U/L (45-117); BILIRUBIN,TOTAL 0.5 mg/dL (0.2-1.0); TOT PROT 6.1 g/dl (6.4-8.2)
--- NOTE | 2017-11-11 21:25 | PDOC ---
History of Present Illness - General Chief Complaint: Injury Stated Complaint: FALL Time Seen by Provider: 11/11/17 17:50 History Source: Patient, Snf Records Exam Limitations: Dementia - History of Present Illness Initial Comments: 11/11/17 21:17 Mr. Soni is a 77 yo M with a hx of COPD and dementia with a hx of multiple falls presents to the emergency department via ambulance for fall. Per the snf ([facility] [phone]), he was found face down conscious at approximately 12:55 pm and an ambulance was called at approximately 4-4:30 pm. The patient states he has no pain and cannot remember when he fell. He denies the following: headache, change in vision, dizziness, FND, chest pain, SOB, abdominal pain, dysuria, diarrhea, and hematuria. Hx is limited due to patient's history of dementia. Pmhx: COPD, HLD, BPH, and hypothyroidism Shx:Unknown Meds: spirivia, simvastatin, advair, ranitidine, montelukast, memantine, loratadine, levothyroxine, combivent, gabapentin, lexapro, aricept, duoneb, tylenol. Allergies: NKDA Social hx: denies smoking, drugs, and alcohol use. Past History - Past Medical History Allergies/Adverse Reactions: Allergies Allergy/AdvReac Type Severity Reaction Status Date / Time No Known Allergies Allergy Verified 07/14/17 12:58 Home Medications: Ambulatory Orders Acetaminophen [Tylenol .Regular Strength -] 650 mg PO Q6H PRN #0 tablet Albuterol 2.5/Ipratropium 0.5 [Duoneb -] 1 amp NEB Q6H PRN #0 amp 10/26/16 Donepezil HCl [Aricept -] 10 mg PO HS 06/04/17 Escitalopram Oxalate [Lexapro -] 10 mg PO DAILY 06/04/17 Gabapentin [Neurontin] 200 mg PO TID 06/04/17 Ipratropium/Albuterol Sulfate [Combivent Respimat 20-100 Mcg] 2 inh IH Q8H 06/04 Levothyroxine Sodium [Levoxyl] 125 mcg PO DAILY 06/04/17 Loratadine [Claritin] 10 mg PO DAILY 06/04/17 Memantine HCl [Namenda Xr] 28 mg PO DAILY 06/04/17 Montelukast Na [Singulair -] 10 mg PO HS 06/04/17 Prednisone 10 mg PO DAILY 06/04/17 Ranitidine HCl [Zantac] 300 mg PO HS 06/04/17 Salmeterol/Fluticasone [Advair 500Mcg/50Mcg -] 1 inh PO BID 06/04/17 Simvastatin [Zocor -] 40 mg PO HS 06/04/17 Thiamine HCl [Vitamin B-1] 100 mg PO DAILY 06/04/17 Tiotropium [place] [Spiriva] 1 inh PO DAILY 06/04/17 COPD: Yes Dementia: Yes GI Disorders: Yes (gerd) Hypercholesterolemia: Yes Psychiatric Problems: Yes (depression) Thyroid Disease: Yes (hypothyroidism) - Immunization History Immunization Up to Date: Yes - Suicide/Smoking/Psychosocial Hx Smoking History: Unknown if ever smoked Have you smoked in the past 12 months: No Information on smoking cessation initiated: No Hx Alcohol Use: No Drug/Substance Use Hx: No Substance Use Type: None Review of Systems - Review of Systems Able to Perform ROS?: Yes (patient has dementia) Is the patient limited [place] proficient: No Constitutional: No: Chills, Diaphoresis, Fever HEENTM: No: Recent change in vision, Ear Pain, Nose Pain, Throat Pain, Throat Swelling, Mouth Pain Respiratory: No: Cough, Shortness of Breath Cardiac (ROS): No: Chest Pain, Lightheadedness ABD/GI: No: Constipated, Diarrhea, Nausea, Rectal Bleeding, Vomiting, Tarry Stools : No: Burning, Dysuria, Hematuria Musculoskeletal: No: Back Pain Integumentary: Yes: Lesions (lesion on eyebrow and nose bridge). No: Bruising, Rash Neurological: No: Headache, Numbness Psychiatric: No: Stressors Endocrine: No: Unexplained Weight Gain Hematologic/Lymphatic: No: Anemia *Physical Exam - Vital Signs Last Vital Signs Temp Pulse Resp BP Pulse Ox 98.7 F 77 18 133/75 93 L 11/11/17 16:49 11/11/17 16:49 11/11/17 16:49 11/11/17 16:49 11/11/17 16:49 - Physical Exam General Appearance: Yes: Nourished, Appropriately Dressed HEENT: positive: EOMI, MACIEL Neck: negative: Lymphadenopathy (R), Lymphadenopathy (L) Respiratory/Chest: positive: Other (expiratory wheezes auscultated bilaterally) Cardiovascular: positive: Regular Rhythm, Regular Rate, S1, S2. negative: Systolic Murmur Gastrointestinal/Abdominal: positive: Normal Bowel Sounds. negative: Tender Lymphatic: negative: Adenopathy Musculoskeletal: negative: CVA Tenderness Extremity: positive: Normal Capillary Refill, Normal Inspection Integumentary: positive: Other (left eyebrow small laceration, superficial right eye brow laceration, and small superifical laceration on left side of nasal bridge.) Neurologic: positive: marketing analyst II-XII NML intact, Alert, Motor Strength 5/5. negative: Fully Oriented (Oriented to self. not oriented to date or place) Heart Score/ECG Review - ECG Intrepretation Comment:: 11/14/17 09:54 63 bpm, WA 154 ms, qtc 452 ms, qrs 84 ms. anteroseptal infarct seen on previous EKG. ED Treatment Course - LABORATORY CBC & Chemistry Diagram: 11/13/17 05:30 11/13/17 05:30 - ADDITIONAL ORDERS Additional order review: Laboratory Results 11/11/17 11/11/17 11/11/17 18:27 18:27 18:24 PT with INR 10.90 INR 0.96 PTT (Actin FS) 24.4 L Sodium 142 Potassium 4.3 Chloride 101 Carbon Dioxide 30 Anion Gap 11 BUN 27 H Creatinine 1.1 Creat Clearance w eGFR > 60 Random Glucose 131 H Calcium 8.6 Total Bilirubin 0.5 AST 19 D ALT 23 D Alkaline Phosphatase 85 Total Protein 6.1 L Albumin 3.2 L Blood Type O POSITIVE Antibody Screen Negative 11/11/17 18:27 RBC 4.90 MCV 87.3 MCHC 33.3 RDW 14.7 MPV 7.7 Neutrophils % 86.2 H Lymphocytes % 9.1 D Monocytes % 4.4 Eosinophils % 0.1 Basophils % 0.2 - RADIOLOGY Radiology Studies Ordered: Category Date Time Status CERVICAL SPINE CT W/O CONTR [CT] Stat CT Scan 11/11/17 18:[address] WITHOUT CONTRAST [CT] Stat CT Scan 11/11/17 18:13 Completed CHEST X-RAY PORTABLE* [RAD] Stat Radiology 11/11/17 18:13 Ordered Medical Decision Making - Medical Decision Making 11/14/17 09:55 Mr. Soni is a 77 yo M with a hx COPD and multiple falls who presented to the ED s/p mechanical fall at his assisted living residence. He was found down by staff. Initial vitals: Initial Vital Signs Temp Pulse Resp BP Pulse Ox 98.7 F 77 18 133/75 93 L 11/11/17 16:49 11/11/17 16:49 11/11/17 16:49 11/11/17 16:49 11/11/17 16:49 Work up: Laboratory Tests 11/11/17 11/11/17 11/11/17 18:24 18:27 18:27 WBC 14.9 H RBC 4.90 Hgb 14.3 Hct 42.8 MCV 87.3 MCH 29.1 MCHC 33.3 RDW 14.7 Plt Count 208 MPV 7.7 Absolute Neuts (auto) 12.8 Neutrophils % 86.2 H Lymphocytes % 9.1 D Monocytes % 4.4 Eosinophils % 0.1 Basophils % 0.2 Nucleated RBC % 0 PT with INR 10.90 INR 0.96 PTT (Actin FS) 24.4 L Sodium Potassium Chloride Carbon Dioxide Anion Gap BUN Creatinine Creat Clearance w eGFR Random Glucose Calcium Total Bilirubin AST ALT Alkaline Phosphatase Creatine Kinase Troponin I Total Protein Albumin Urine Color Urine Appearance Urine pH Ur Specific [place] Urine Protein Urine Glucose (UA) Urine Ketones Urine Blood Urine Nitrite Urine Bilirubin Urine Urobilinogen Ur Leukocyte Esterase Blood Type O POSITIVE Antibody Screen Negative 11/11/17 11/11/17 11/11/17 18:27 18:27 22:18 WBC RBC Hgb Hct MCV MCH MCHC RDW Plt Count MPV Absolute Neuts (auto) Neutrophils % Lymphocytes % Monocytes % Eosinophils % Basophils % Nucleated RBC % PT with INR INR PTT (Actin FS) Sodium 142 Potassium 4.3 Chloride 101 Carbon Dioxide 30 Anion Gap 11 BUN 27 H Creatinine 1.1 Creat Clearance w eGFR > 60 Random Glucose 131 H Calcium 8.6 Total Bilirubin 0.5 AST 19 D ALT 23 D Alkaline Phosphatase 85 Creatine Kinase 48 Troponin I < 0.02 Total Protein 6.1 L Albumin 3.2 L Urine Color Yellow Urine Appearance Clear Urine pH 6.0 Ur Specific [place] 1.021 Urine Protein Negative Urine Glucose (UA) Negative Urine Ketones Negative Urine Blood Negative Urine Nitrite Negative Urine Bilirubin Negative Urine Urobilinogen Negative Ur Leukocyte Esterase Negative Blood Type Antibody Screen Transferred care to Dr. Aaron. Prior to continuation of care to Dr. Aaron, he was evaluated for intracranial bleed and cervical spine fracture. Both were negative, however it was shown that he had facial fracture. No acute changes noted. 11/14/17 09:55 11/14/17 09:56 *DC/Admit/Observation/Transfer Diagnosis at time of Disposition: Superficial laceration of face Facial trauma Qualifiers: Encounter type: initial encounter Qualified Code(s): S09.93XA - Unspecified injury of face, initial encounter Nasal bone fractures Qualifiers: Encounter type: initial encounter Fracture type: closed Qualified Code(s): S02.2XXA - Fracture of nasal bones, initial encounter for closed fracture COPD (chronic obstructive pulmonary disease) Qualifiers: COPD type: unspecified COPD Qualified Code(s): J44.9 - Chronic obstructive pulmonary disease, unspecified Dementia Qualifiers: Dementia type: unspecified type Dementia behavioral disturbance: without behavioral disturbance Qualified Code(s): F03.90 - Unspecified dementia without behavioral disturbance - Referrals - Patient Instructions - Post Discharge Activity
[2017-11-11 22:27] LABS: URINE APPEARANCE CLEAR; URINE BILIRUBIN NEGATIVE (<2.0 mg/dL); URINE COLOR YELLOW; URINE GLUCOSE (UA) NEGATIVE (NEGATIVE); URINE KETONE NEGATIVE (NEGATIVE); URINE LEUK ESTERASE NEGATIVE (NEGATIVE); URINE NITRITE NEGATIVE (NEGATIVE); URINE PROTEIN NEGATIVE (NEGATIVE); URINE UROBILINOGEN NEGATIVE mg/dL (0.2-1.0)
--- NOTE | 2017-11-11 23:00 | PDOC ---
Attending Attestation - Resident Resident Name: Joseluis Ulloa - ED Attending Attestation I have performed the following: I have examined & evaluated the patient, The case was reviewed & discussed with the resident, I agree w/resident's findings & plan, Exceptions are as noted - HPI HPI: 11/11/17 22:59 77-year-old male brought in by ambulance from the senior living after being found facedown on the floor. This was not a witnessed event - Physicial Exam PE: 11/11/17 23:00 Well-nourished, well-developed 77-year-old male brought in by ambulance after being found on the floor in the senior living Head, patient has small superficial laceration over the left eyebrow and there is also a small superficial laceration on his left nasal bridge. Neck no vertebral tenderness upon palpation. Lungs some scattered wheezing b/l CVS regular rate and rhythm S1, S2. Abdomen nontender. Extremities full range of motion, there are no obvious deformities. Skin is warm and dry. Neurologically he is oriented to person only. He has a history of dementia and he is able to move all his extremities, although he is a poor historian. He is alert - Medical Decision Making 11/11/17 23:05 Patient is alert, but very poor historian. It CAT scan of the head does not show any acute intracranial pathology, there are nasal fractures CAT scan of the C-spine doesn't show any acute fracture or subluxation. Urine is negative CBC reveals a leukocytosis Chemistries show a negative troponin of 0.02. EKG is normal sinus rhythm at 63 bpm chest x-ray shows a tortuous aorta 11/11/17 23:19
--- NOTE | 2017-11-12 00:59 | PDOC ---
*Physical Exam - Vital Signs Last Vital Signs Temp Pulse Resp BP Pulse Ox 98.7 F 77 18 133/75 93 L 11/11/17 16:49 11/11/17 16:49 11/11/17 16:49 11/11/17 16:49 11/11/17 16:49 ED Treatment Course - LABORATORY CBC & Chemistry Diagram: 11/11/17 18:27 11/11/17 18:27 - ADDITIONAL ORDERS Additional order review: Laboratory Results 11/11/17 11/11/17 11/11/17 22:18 18:27 18:27 PT with INR INR PTT (Actin FS) Sodium 142 Potassium 4.3 Chloride 101 Carbon Dioxide 30 Anion Gap 11 BUN 27 H Creatinine 1.1 Creat Clearance w eGFR > 60 Random Glucose 131 H Calcium 8.6 Total Bilirubin 0.5 AST 19 D ALT 23 D Alkaline Phosphatase 85 Creatine Kinase 48 Troponin I < 0.02 Total Protein 6.1 L Albumin 3.2 L Urine Color Yellow Urine Appearance Clear Urine pH 6.0 Ur Specific [place] 1.021 Urine Protein Negative Urine Glucose (UA) Negative Urine Ketones Negative Urine Blood Negative Urine Nitrite Negative Urine Bilirubin Negative Urine Urobilinogen Negative Ur Leukocyte Esterase Negative Blood Type Antibody Screen 11/11/17 11/11/17 18:27 18:24 PT with INR 10.90 INR 0.96 PTT (Actin FS) 24.4 L Sodium Potassium Chloride Carbon Dioxide Anion Gap BUN Creatinine Creat Clearance w eGFR Random Glucose Calcium Total Bilirubin AST ALT Alkaline Phosphatase Creatine Kinase Troponin I Total Protein Albumin Urine Color Urine Appearance Urine pH Ur Specific [place] Urine Protein Urine Glucose (UA) Urine Ketones Urine Blood Urine Nitrite Urine Bilirubin Urine Urobilinogen Ur Leukocyte Esterase Blood Type O POSITIVE Antibody Screen Negative 11/11/17 18:27 RBC 4.90 MCV 87.3 MCHC 33.3 RDW 14.7 MPV 7.7 Neutrophils % 86.2 H Lymphocytes % 9.1 D Monocytes % 4.4 Eosinophils % 0.1 Basophils % 0.2 *DC/Admit/Observation/Transfer Diagnosis at time of Disposition: Superficial laceration of face Facial trauma Qualifiers: Encounter type: initial encounter Qualified Code(s): S09.93XA - Unspecified injury of face, initial encounter Nasal bone fractures Qualifiers: Encounter type: initial encounter Fracture type: closed Qualified Code(s): S02.2XXA - Fracture of nasal bones, initial encounter for closed fracture COPD (chronic obstructive pulmonary disease) Qualifiers: COPD type: unspecified COPD Qualified Code(s): J44.9 - Chronic obstructive pulmonary disease, unspecified Dementia Qualifiers: Dementia type: unspecified type Dementia behavioral disturbance: without behavioral disturbance Qualified Code(s): F03.90 - Unspecified dementia without behavioral disturbance - Discharge Dispostion Decision to Admit order: Yes - Referrals - Patient Instructions - Post Discharge Activity
--- NOTE | 2017-11-12 03:48 | PN ---
Teaching Attending Note Name of Resident: Stephanie Tovar ATTENDING PHYSICIAN STATEMENT I saw and evaluated the patient. Chart, data, imaging reviewed. I reviewed the resident's note and discussed the case with the resident. I agree with the resident's findings and plan as documented. SUBJECTIVE: 77-year-old male brought in by ambulance after being found on the floor in the [facility] on 11/11. Patient had small superficial laceration over the left eyebrow and a small superficial laceration on his left nasal bridge. Facial wounds were treated in ER. Pt had head CT and C spine CT performed which were unremarkable. OBJECTIVE: Last Vital Signs Temp Pulse Resp BP Pulse Ox 98.7 F 77 18 133/75 93 L 11/11/17 16:49 11/11/17 16:49 11/11/17 16:49 11/11/17 16:49 11/11/17 16:49 General -bedbound, follows commands, nad HEENT - echymosis seen, lacerations, nasal tenderness neck -no masses cv-s1+s2+ rrr chest- cta b/l, no tenderness abdomen- soft, nt, bs+ ext - no tenderness appreciated, knees w/ abrasions Abnormal Lab Results 11/11/17 11/11/17 11/11/17 18:27 18:27 18:27 WBC 14.9 H Neutrophils % 86.2 H PTT (Actin FS) 24.4 L BUN 27 H Random Glucose 131 H Total Protein 6.1 L Albumin 3.2 L imaging reports reviewed- head ct showed nasal fracture, c spine with no bony fractures ASSESSMENT AND PLAN: 77yo man s/p unwitnessed fall on 11/11 at [facility], found to have nasal fracture -observation -ekg -repeat head CT in 24hrs as there might be delayed intracranial hematoma -ENT consult for nasal fracture -Tdap booster as there were laceration -fall precautions -complete bed rest -restart home medications -heparin sc for dvt ppx
[2017-11-12] MEDS: HEPARIN NA (PORCINE) 5,000 UNITS/ML 1ML VIAL SQ SCH ×2 (06:15→14:56)
[2017-11-12] MEDS ORDERED: HEPARIN NA (PORCINE) 5,000 UNITS/ML 1ML VIAL ONE (06:48)
--- NOTE | 2017-11-12 09:34 | HP ---
CHIEF COMPLAINT:s/p fall PCP: Dr. Jaeger HISTORY OF PRESENT ILLNESS: Patient is a 77 year old male with past medical history of Dementia, COPD, HTN, HLD, BPH, hypothyroidism and multiple falls, was brought in from the assisted after he was found on the floor and face down after an unwitnessed fall. Patient is a poor historian. He does not recall falling down and denies any headache, dizziness, chest pain, SOB, palpitations, diarrhea, constipation. ER course was notable for: (1)Lacerations at the right eyebrow was closed. (2)Head CT showed nasal bone fractures with no evidence of acute intracranial pathology. (3)C-spine CT showed degenerative arthritis with no evidence of fracture or acute bony abbnormalities. Recent Travel:denies any recent travel. PAST MEDICAL HISTORY: Dementia COPD HTN HLD BPH Hypothyroidism PAST SURGICAL HISTORY: [place] Social History: Smoking:previous smoker Alcohol:denies ETOH use Drugs: denies illicit drug use Family History: Allergies No Known Allergies Allergy (Verified 07/14/17 12:58) HOME MEDICATIONS: Home Medications Medication Instructions Recorded Acetaminophen [Tylenol .Regular 650 mg PO Q6H PRN #0 tablet 10/26/16 Strength -] Albuterol 2.5/Ipratropium 0.5 1 amp NEB Q6H PRN #0 amp 10/26/16 [Duoneb -] Donepezil HCl [Aricept -] 10 mg PO HS 06/04/17 Escitalopram Oxalate [Lexapro -] 10 mg PO DAILY 06/04/17 Gabapentin [Neurontin] 200 mg PO TID 06/04/17 Ipratropium/Albuterol Sulfate 2 inh IH Q8H 06/04/17 [Combivent Respimat Inhal [place]] Levothyroxine Sodium [Levoxyl] 125 mcg PO DAILY 06/04/17 Loratadine [Claritin] 10 mg PO DAILY 06/04/17 Memantine HCl [Namenda Xr] 28 mg PO DAILY 06/04/17 Montelukast Na [Singulair -] 10 mg PO HS 06/04/17 Prednisone 10 mg PO DAILY 06/04/17 Ranitidine HCl [Zantac] 300 mg PO HS 06/04/17 Salmeterol/Fluticasone [Advair 1 inh PO BID 02/28/18 500Mcg/50Mcg] Simvastatin [Zocor -] 40 mg PO HS 06/04/17 Thiamine HCl [Vitamin B-1] 100 mg PO DAILY 06/04/17 Tiotropium [place] [Spiriva] 1 inh PO DAILY 06/04/17 REVIEW OF SYSTEMS CONSTITUTIONAL: Absent: fever, chills, diaphoresis, generalized weakness, malaise, loss of appetite, weight change HEENT: Absent: rhinorrhea, nasal congestion, throat pain, throat swelling, difficulty swallowing, mouth swelling, ear pain, eye pain, visual changes CARDIOVASCULAR: Absent: chest pain, syncope, palpitations, irregular heart rate, lightheadedness , peripheral edema RESPIRATORY: Absent: cough, shortness of breath, dyspnea with exertion, orthopnea, wheezing, stridor, hemoptysis GASTROINTESTINAL: Absent: abdominal pain, abdominal distension, nausea, vomiting, diarrhea, constipation, melena, hematochezia GENITOURINARY: Absent: dysuria, frequency, urgency, hesitancy, hematuria, flank pain, genital pain MUSCULOSKELETAL: Absent: myalgia, arthralgia, joint swelling, back pain, neck pain SKIN: Absent: rash, itching, pallor HEMATOLOGIC/IMMUNOLOGIC: Absent: easy bleeding, easy bruising, lymphadenopathy, frequent infections ENDOCRINE: Absent: unexplained weight gain, unexplained weight loss, heat intolerance, cold intolerance NEUROLOGIC: Absent: headache, focal weakness or paresthesias, dizziness, unsteady gait, seizure, mental status changes, bladder or bowel incontinence PSYCHIATRIC: Absent: anxiety, depression, suicidal or homicidal ideation, hallucinations. PHYSICAL EXAMINATION Vital Signs - 24 hr 11/11/17 11/11/17 11/12/17 16:49 19:50 08:48 Temperature 98.7 F 98 F Pulse Rate 77 Pulse Rate [ 62 Apical] Respiratory 18 18 16 Rate Blood Pressure 133/75 Blood Pressure 132/71 [Right Arm] O2 Sat by Pulse 93 L 93 L 95 Oximetry (%) GENERAL: Awake, alert, and oriented to place only, in no acute distress. HEAD: +lacerations on right and left eyebrow, +laceration, nose EYES: PERRLA, EOMI sclera anicteric, conjunctiva clear. EARS, NOSE, THROAT: Ears normal, nares patent, oropharynx clear without exudates. Moist mucous membranes. NECK: Normal range of motion, supple without lymphadenopathy, JVD, or masses. LUNGS: Breath sounds equal, clear to auscultation bilaterally. HEART: Regular rate and rhythm, normal S1 and S2 without murmur, rub or gallop. ABDOMEN: Soft, nontender, not distended, normoactive bowel sounds. MUSCULOSKELETAL: Normal range of motion at all joints. No bony deformities or tenderness. No CVA tenderness. UPPER EXTREMITIES: 2+ pulses, warm, well-perfused. No cyanosis. No clubbing. No peripheral edema. LOWER EXTREMITIES: 2+ pulses, warm, well-perfused. No peripheral edema. +wound, R knee SKIN: Warm, dry, normal turgor. Laboratory Results - last 24 hr 11/11/17 11/11/17 11/11/17 18:24 18:27 18:27 WBC 14.9 H RBC 4.90 Hgb 14.3 Hct 42.8 MCV 87.3 MCH 29.1 MCHC 33.3 RDW 14.7 Plt Count 208 MPV 7.7 Absolute Neuts (auto) 12.8 Neutrophils % 86.2 H Lymphocytes % 9.1 D Monocytes % 4.4 Eosinophils % 0.1 Basophils % 0.2 Nucleated RBC % 0 PT with INR 10.90 INR 0.96 PTT (Actin FS) 24.4 L Sodium Potassium Chloride Carbon Dioxide Anion Gap BUN Creatinine Creat Clearance w eGFR Random Glucose Calcium Total Bilirubin AST ALT Alkaline Phosphatase Creatine Kinase Troponin I Total Protein Albumin Urine Color Urine Appearance Urine pH Ur Specific [place] Urine Protein Urine Glucose (UA) Urine Ketones Urine Blood Urine Nitrite Urine Bilirubin Urine Urobilinogen Ur Leukocyte Esterase Blood Type O POSITIVE Antibody Screen Negative 11/11/17 11/11/17 11/11/17 18:27 18:27 22:18 WBC RBC Hgb Hct MCV MCH MCHC RDW Plt Count MPV Absolute Neuts (auto) Neutrophils % Lymphocytes % Monocytes % Eosinophils % Basophils % Nucleated RBC % PT with INR INR PTT (Actin FS) Sodium 142 Potassium 4.3 Chloride 101 Carbon Dioxide 30 Anion Gap 11 BUN 27 H Creatinine 1.1 Creat Clearance w eGFR > 60 Random Glucose 131 H Calcium 8.6 Total Bilirubin 0.5 AST 19 D ALT 23 D Alkaline Phosphatase 85 Creatine Kinase 48 Troponin I < 0.02 Total Protein 6.1 L Albumin 3.2 L Urine Color Yellow Urine Appearance Clear Urine pH 6.0 Ur Specific [place] 1.021 Urine Protein Negative Urine Glucose (UA) Negative Urine Ketones Negative Urine Blood Negative Urine Nitrite Negative Urine Bilirubin Negative Urine Urobilinogen Negative Ur Leukocyte Esterase Negative Blood Type Antibody Screen CBC, BMP 11/11/17 18:27 11/11/17 18:27 ASSESSMENT/PLAN: Patient is a 77 year old male with past medical history of Dementia, COPD, HTN, HLD, BPH, hypothyroidism and multiple falls, was brought in from the assisted after he was found on the floor and face down after an unwitnessed fall. #Nasal fracture s/p fall -Repeat CT scan to rule out delayed intracranial bleeding. -ENT consult appreciated. -Fall precautions -complete bed rest -Tdap booster ordered. #Dementia: chronic -continue home meds #Hypertension: chronic, controlled -continue home meds -monitor BP #FEN -Not on any standing fluids -Encourage increase oral fluid intake. -Electrolytes wnl, routine BMP monitoring. -Sodium restricted diet. #Prophylaxis -Heparin 5000 units sq tid #Disposition -admit to obs-telemetry -full code Visit type - Emergency Visit Emergency Visit: Yes Care time: The patient presented to the Emergency Department on the above date and was hospitalized for further evaluation of their emergent condition. - New Patient This patient is new to me today: Yes Date on this admission: 11/12/17 - Critical Care Critical Care patient: No Hospitalist Screening - Colonoscopy Questionnaire Colonoscopy Questionnaire: Colonoscopy Questionnaire - Patient: 50 - 75 years old and never had a screening colonoscopy: Unknown History of colon or rectal polyps, or CA: Unknown History of IBD, Crohn's disease or UC: Unknown History of abdominal radiation therapy as a child: Unknown - Relative: 1 with colon or rectal CA, or polyps at age 60 or younger: Unknown Colon or rectal CA diagnosed at age 45 or younger: Unknown Multiple relatives with colon or rectal CA: Unknown - Outcome: Screening Result: Negative Screen
[2017-11-12] MEDS ORDERED: TETANUS AND DIPHTHERIA TOXOID 0.5 ML DISP.SYRIN IM ONE (10:01)
--- NOTE | 2017-11-12 10:31 | EKG ---
Test Reason : Blood Pressure : / mmHG Vent. 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
[2017-11-12] MEDS ORDERED: ALBUTEROL SO4 2.5/IPRATROPIUM 0.5 INH SOL 3 ML VIAL.NEB. NEB ONE (13:13)
[2017-11-12] MEDS ORDERED: ACETAMINOPHEN 325 MG TABLET (FP) PO PRN (14:18)
[2017-11-12] MEDS: ALBUTEROL SO4 2.5/IPRATROPIUM 0.5 INH SOL 3 ML VIAL.NEB. NEB PRN (18:05)
[2017-11-12] MEDS: MONTELUKAST NA 10 MG TABLET PO SCH (21:06)
[2017-11-12] MEDS: ATORVASTATIN CA 20 MG TABLET (FP) PO SCH (21:06)
[2017-11-12] MEDS: GABAPENTIN 100 MG CAPSULE (FP) PO SCH (21:07)
[2017-11-12] MEDS: DONEPEZIL HCL 10 MG TABLET (FP) PO SCH (21:07)
[2017-11-12] MEDS ORDERED: PATIENT'S OWN MEDICATION (NON-FORMULARY) (Salmeterol/Fluticasone [Advair 500mcg/50mcg -] 1 PO SCH (22:00)
[2017-11-12] MEDS ORDERED: PATIENT'S OWN MEDICATION (NON-FORMULARY) (Simvastatin 40 MG) PO SCH (22:00)
[2017-11-12] MEDS: BUDESONIDE/FORMETEROL FUMARATE 160/4.5 mcg INHALER IH SCH (23:13)
[2017-11-13] MEDS: LEVOTHYROXINE NA 125 MCG TABLET (FP) PO SCH (06:06)
[2017-11-13] MEDS: GABAPENTIN 100 MG CAPSULE (FP) PO SCH ×3 (06:06→23:09)
[2017-11-13 06:32] LABS: HEMATOCRIT 43.5 % (35.4-49); HEMOGLOBIN 14.9 GM/dL (11.7-16.9); MCH 29.9 pg (25.7-33.7); MCHC 34.2 g/dl (32.0-35.9); MEAN CELL VOLUME 87.4 fl (80-96); MEAN PLT VOLUME 7.6 fl (7.5-11.1); PLATELET COUNT 182 K/MM3 (134-434); RBC 4.98 M/mm3 (4.00-5.60); RDW 15.3 % (11.9-15.9)
[2017-11-13 07:00] LABS: ANION GAP 9 (8-16); BLOOD UREA NITROGEN 24 mg/dL (7-18); CALCIUM 8.5 mg/dL (8.5-10.1); CHLORIDE 101 mmol/L (98-107); CO2 34 mmol/L (21-32); CREATININE 0.9 mg/dL (0.7-1.3); GLUCOSE,RANDOM 75 mg/dL (74-106); MAGNESIUM 2.1 mg/dL (1.8-2.4); SODIUM 144 mmol/L (136-145)
[2017-11-13] MEDS ORDERED: PT OWN MED DRAWER 7, Y5N ONE (09:11)
[2017-11-13] MEDS ORDERED: PATIENT'S OWN MEDICATION (NON-FORMULARY) (Tiotropium Bromide [Spiriva] 1 INH) PO SCH (10:00)
[2017-11-13] MEDS ORDERED: PATIENT'S OWN MEDICATION (NON-FORMULARY) (Memantine Hcl [Namenda Xr] 28 MG) PO SCH (10:00)
[2017-11-13] MEDS: predniSONE 10 MG TABLET (UD) PO SCH (10:12)
[2017-11-13] MEDS: ESCITALOPRAM OXALATE 10 MG TABLET (FP) PO SCH (10:13)
[2017-11-13] MEDS: BUDESONIDE/FORMETEROL FUMARATE 160/4.5 mcg INHALER IH SCH ×2 (11:00→23:08)
[2017-11-13] MEDS: TIOTROPIUM BROMIDE (SPIRIVA) RESPIMAT INHALER IH SCH (11:00)
[2017-11-13] MEDS ORDERED: LORazepam 2 MG/ML SDV VIAL IVPUSH ONE (12:15)
--- NOTE | 2017-11-13 12:16 | DS ---
Physical Examination Vital Signs: Vital Signs Temperature 97.8 F 11/13/17 05:00 Pulse Rate 70 11/13/17 05:00 Respiratory Rate 20 11/13/17 05:00 Blood Pressure 107/64 11/13/17 05:00 O2 Sat by Pulse Oximetry (%) 94 L 11/13/17 02:00 Labs: CBC, BMP 11/13/17 05:30 11/13/17 05:30 Discharge Summary Reason For Visit: FRACTURE OF NASAL BONE, DEMENTIA, SUPERFICIAL LAC Current Active Problems COPD (chronic obstructive pulmonary disease) (Acute) Dementia (Acute) Facial trauma (Acute) Nasal bone fractures (Acute) Superficial laceration of face (Acute) - Instructions - Home Medications Comprehensive Discharge Medication List: Ambulatory Orders Acetaminophen [Tylenol .Regular Strength -] 650 mg PO Q6H PRN #0 tablet Albuterol 2.5/Ipratropium 0.5 [Duoneb -] 1 amp NEB Q6H PRN #0 amp 10/26/16 Donepezil HCl [Aricept -] 10 mg PO HS 06/04/17 Escitalopram Oxalate [Lexapro -] 10 mg PO DAILY 06/04/17 Gabapentin [Neurontin] 200 mg PO TID 06/04/17 Ipratropium/Albuterol Sulfate [Combivent Respimat Inhal [place]] 2 inh IH Q8H Levothyroxine Sodium [Levoxyl] 125 mcg PO DAILY 06/04/17 Loratadine [Claritin] 10 mg PO DAILY 06/04/17 Memantine HCl [Namenda Xr] 28 mg PO DAILY 06/04/17 Montelukast Na [Singulair -] 10 mg PO HS 06/04/17 Prednisone 10 mg PO DAILY 06/04/17 Ranitidine HCl [Zantac] 300 mg PO HS 06/04/17 Salmeterol/Fluticasone [Advair 500Mcg/50Mcg] 1 inh PO BID 06/04/17 Simvastatin [Zocor -] 40 mg PO HS 06/04/17 Thiamine HCl [Vitamin B-1] 100 mg PO DAILY 06/04/17 Tiotropium [place] [Spiriva] 1 inh PO DAILY 06/04/17
[2017-11-13] MEDS ORDERED: LORazepam 2 MG/ML SDV VIAL ONE (14:07)
[2017-11-13] MEDS: ALBUTEROL SO4 2.5/IPRATROPIUM 0.5 INH SOL 3 ML VIAL.NEB. NEB PRN (17:33)
[2017-11-13] MEDS: ATORVASTATIN CA 20 MG TABLET (FP) PO SCH (23:08)
[2017-11-13] MEDS: MONTELUKAST NA 10 MG TABLET PO SCH (23:08)
[2017-11-13] MEDS: DONEPEZIL HCL 10 MG TABLET (FP) PO SCH (23:09)
[2017-11-14] MEDS: LEVOTHYROXINE NA 125 MCG TABLET (FP) PO SCH (06:15)
[2017-11-14] MEDS: GABAPENTIN 100 MG CAPSULE (FP) PO SCH (06:15)
[2017-11-14 10:44] VITALS: BP 150/89; PULSE 70; TEMP 98.6
[2017-11-14] MEDS: ESCITALOPRAM OXALATE 10 MG TABLET (FP) PO SCH (10:46)
[2017-11-14] MEDS: predniSONE 10 MG TABLET (UD) PO SCH (10:46)
[2017-11-14] MEDS: TIOTROPIUM BROMIDE (SPIRIVA) RESPIMAT INHALER IH SCH (10:48)
[2017-11-14] MEDS: BUDESONIDE/FORMETEROL FUMARATE 160/4.5 mcg INHALER IH SCH (10:48)
== END 2017-11-14 10:55 ==
LOC: JER 16:23 → JERBED 11-12 00:59 → J4W 11-12 12:55
PROVIDERS: ADMIT Internal Medicine; ATTEND Internal Medicine
PROC: 0HQ1XZZ Repair Face Skin, External Approach (ICD-10-PCS; principal; 2017-11-12)
PROC: 3E0F7GC Introduction of Other Therapeutic Substance into Respiratory Tract, Via Natural or Artificial Opening (ICD-10-PCS; 2017-11-12)
PROC: 3E0234Z Introduction of Serum, Toxoid and Vaccine into Muscle, Percutaneous Approach (ICD-10-PCS; 2017-11-12)
DX: S02.2XXA Fracture of nasal bones, initial encounter for closed fracture (principal); S01.111A Laceration without foreign body of right eyelid and periocular area, initial encounter; S09.93XA Unspecified injury of face, initial encounter; Z91.81 History of falling; J44.9 Chronic obstructive pulmonary disease, unspecified; F03.90 Unspecified dementia, unspecified severity, without behavioral disturbance, psychotic disturbance, mood disturbance, and anxiety; R29.6 Repeated falls; E78.5 Hyperlipidemia, unspecified; N40.0 Benign prostatic hyperplasia without lower urinary tract symptoms; E03.9 Hypothyroidism, unspecified; K21.9 Gastro-esophageal reflux disease without esophagitis; F32.9 Major depressive disorder, single episode, unspecified; W19.XXXA Unspecified fall, initial encounter; Y93.9 Activity, unspecified; Y92.129 Unspecified place in nursing home as the place of occurrence of the external cause
CPT/HCPCS: 12011; 36415; 70450-TC; 71045-TC-FY; 72125-TC; 80048; 80053; 81003; 82550; 83735; 84100; 84484; 85025; 85027; 85610; 85730; 86850; 86900; 86901; 87086; 90471; 93005; 93010; 94640; 99284-25; G0378; J1644; J7620